=== PATIENT | female | born 1965 | race Caucasian/White ===

== ENCOUNTER → 2017-12-18 | Outpatient (CLI) | payer MEDICARE, OTHER ==
--- NOTE | 2017-12-24 07:28 | MM ---
Reason for exam: clinical finding. Last mammogram was performed 13 years and 7 months ago. History: Family history of breast cancer in sister at age 40. Indicated problem(s): lump or thickening in the right breast. Physical Findings: Nurse did not find any significant physical abnormalities on exam. MG 3D Diag Mammo W/Cad SAJAN Bilateral CC, MLO, spot compression MLO, spot compression CC, and ML view(s) were taken. Prior study comparison: May 03, 2004, left breast special view mammogram. April 05, 2004, bilateral screening mammogram. The breast tissue is heterogeneously dense. This may lower the sensitivity of mammography. There is new nodularity bilaterally. These results were verbally communicated with the patient on 12/23/14 ASSESSMENT: Incomplete: need additional imaging evaluation, BI-RAD 0 RECOMMENDATION: Ultrasound of both breasts.
--- NOTE | 2017-12-24 07:31 | USB ---
Reason for exam: additional evaluation requested from abnormal screening. History: Family history of breast cancer in sister at age 40. US Breast Limited BILAT Right breast ultrasound includes all four quadrants, the retroareolar region and axilla. Finding demonstrates a 0.5 x 0.3 x 0.6cm oval lesion too small to characterize at 8 o'clock and a 0.9 x 0.3 x 0.8cm oval, cystic lesion at 11 o'clock. Left breast ultrasound demonstrates a 0.4 x 0.3 x 0.4cm round lesion too small to characterize within debris at the nipple and a 0.2 x 0.3 x 0.3cm lesion too small to characterize at 6 o'clock. These results were verbally communicated with the patient on 12/23/17. ASSESSMENT: Probably benign, BI-RAD 3 RECOMMENDATION: Follow-up diagnostic mammogram and ultrasound of both breasts in 6 months.
== END ==
LOC: RADMAMWWP 13:35
PROVIDERS: ATTEND Family Medicine
DX: N63.10 Unspecified lump in the right breast, unspecified quadrant (principal); R92.8 Other abnormal and inconclusive findings on diagnostic imaging of breast
CPT/HCPCS: 77066; 76642; G0279

== ENCOUNTER 2017-12-30 09:11 | Day surgery (SDC) | payer MEDICARE, OTHER ==
[2017-12-27 13:09] VITALS: BMI 33.7
[~2017-12-30 09:11] MED LIST: HEPARIN SODIUM,PORCINE 5,000 UNIT/ML 1 ML VIAL SQ ONE; HYDROmorphone 0.5 MG/0.5 ML SYRINGE IVP PRN; LACTATED RINGERS 1,000 ML IV SCH; LIDOCAINE 1% 20 ML VIAL (10MG/ML) FOR IV START INTRADERMA PRN; ONDANSETRON 4 MG/2 ML VIAL IVP ONE; Pre Op ABX Message 1 EACH MISC MISCELLANE ONE
[2017-12-30 09:31] VITALS: TEMP 97
[2017-12-30] MEDS ORDERED: SCOPOLAMINE 1.5MG/72HR PATCH TRANSDERM ONE (09:44)
[2017-12-30] MEDS ORDERED: DEXAMETHASONE SOD PHOS (MDV) 100 MG/10 ML VIAL IVP ONE (09:44)
[2017-12-30 09:54] LABS: Glucose,Whole Blood 125 mg/dL (75-99)
--- NOTE | 2017-12-30 09:54 | P.GSHP ---
History of Present Illness H&P Date: 12/30/17 Chief Complaint: Epigastric abdominal wall cyst This a 52-year-old female who presents today for excision of a epigastric abdominal wall cyst. Past Medical History Past Medical History: Asthma, Diabetes Mellitus, GERD/Reflux, Hyperlipidemia, Hypertension, Musculoskeletal Disorder, Osteoarthritis (OA), Pneumonia Additional Past Medical History / Comment(s): DDD; History of Any Multi-Drug Resistant Organisms: None Reported Past Surgical History: Cholecystectomy, Orthopedic Surgery, Tubal Ligation, Uterine Ablation Additional Past Surgical History / Comment(s): COLONOSCOPY, EGD, REMOVAL LLE LIGAMENT, Paolo fundoplication Past Anesthesia/Blood Transfusion Reactions: Motion Sickness, Postoperative Nausea & Vomiting (PONV) Smoking Status: Never smoker - Past Family History Sister(s) Family Medical History: Cancer, Deep Vein Thrombosis (DVT) Additional Family Medical History / Comment(s): SISTER W/ BLOOD CLOTS, SISTERS WITH BREAST CANCER, sister with stomach cancer, sister with lupus. Patient has a total of 11 siblings. She has 3 daughters and 1 son that are healthy. Medications and Allergies Home Medications Medication Instructions Recorded Confirmed Type Albuterol Nebulized [Ventolin 2.5 mg INHALATION RT-Q4H PRN 01/18/15 12/27/17 History Nebulized] Simvastatin [Zocor] 40 mg PO HS 01/18/15 12/27/17 History glyBURIDE [Diabeta] 5 mg PO AC-BID 01/18/15 12/27/17 History metFORMIN HCL [Glucophage] 1,000 mg PO QAM 01/18/15 12/30/17 History HYDROcodone/APAP 10-325MG [Spelter 1 each PO Q4HR PRN 02/03/15 12/27/17 History 10] Lisinopril [Prinivil] 20 mg PO DAILY 02/03/15 12/30/17 History Furosemide [Lasix] 20 mg PO DAILY 07/06/15 12/27/17 History Meclizine [Antivert] 25 mg PO TID PRN #20 tab 07/06/15 12/27/17 Rx Ranitidine HCl [Zantac] 150 mg PO DAILY 06/04/16 12/30/17 History metFORMIN HCL [Glucophage] 1,500 mg PO HS 06/04/16 12/27/17 History Liraglutide [Victoza 2-Shad] 0.6 mg SQ BID 12/27/17 12/27/17 History Allergies Allergy/AdvReac Type Severity Reaction Status Date / Time shellfish derived [Shrimp] Allergy Rash/Hives Verified 12/30/17 09:19 sulfamethoxazole Allergy Rash/Hives Verified 12/30/17 09:19 [From Bactrim] trimethoprim [From Bactrim] Allergy Rash/Hives Verified 12/30/17 09:19 Surgical - Exam Vital Signs Temp Pulse Resp BP Pulse Ox 97.0 F L 77 18 132/80 99 12/30/17 09:29 12/30/17 09:29 12/30/17 09:29 12/30/17 09:29 12/30/17 09:29 - General well developed, no distress - Eyes PERRL - ENT normal pinna - Neck no masses - Respiratory normal expansion - Cardiovascular Rhythm: regular - Abdomen Abdomen: soft, non tender - Integumentary 3 cm epigastric abdominal wall cyst. There is no sign of infection. Assessment and Plan Assessment: Epigastric abdominal wall cyst. We'll perform excision.
[2017-12-30] MEDS ORDERED: PROPOFOL 10 MG/ML 20 ML VIAL IV ONE (10:07)
[2017-12-30] MEDS ORDERED: MIDAZOLAM 2 MG/2 ML VIAL ONE (10:07)
[2017-12-30] MEDS ORDERED: fentaNYL (PF) 50 MCG/ML 2 ML AMP ONE (10:07)
[2017-12-30] MEDS ORDERED: SODIUM CHLORIDE 0.9% 50 ML with ceFAZolin 2,000 MG IV ONE ×2 (10:18)
[2017-12-30] MEDS ORDERED: BUPIVACAINE (PF) 0.25% 30 ML VIAL SQ ONE (10:21)
--- NOTE | 2017-12-30 10:41 | P.OP ---
Date of Procedure: 12/30/17 Preoperative Diagnosis: Epigastric skin cyst Postoperative Diagnosis: Epigastric skin cyst Procedure(s) Performed: Excision of epigastric skin cyst Anesthesia: MAC Surgeon: Gera Araujo Pathology: other (Skin cyst) Condition: stable Disposition: PACU Description of Procedure: The patient's placed on the on the operating table in the supine position. She received IV sedation. The patient had a epigastric skin cyst. The area have a marked in the preoperative hold area elliptical skin incision was made around the skin cyst. The cyst measured approximately 3 x 2 cm. Using left cautery the subcutaneous tissue divided. The specimens of pathology. The wound was inspected for hemostasis. The skin was then closed interrupted 3-0 Monocryl suture. Dermabond was applied. Patient top she will was sent to recovery room stable condition.
[2017-12-30 10:47] LABS: Glucose,Whole Blood 124 mg/dL (75-99)
[2017-12-30 11:06] VITALS: RESP 18
[2017-12-30 11:24] VITALS: BP 116/55; PULSE 69
== END 2017-12-30 11:33 | disposition home or self-care (01) ==
LOC: OR 09:11
PROVIDERS: ATTEND Surgery
DX: L72.0 Epidermal cyst (principal); J45.909 Unspecified asthma, uncomplicated; E11.9 Type 2 diabetes mellitus without complications; K21.9 Gastro-esophageal reflux disease without esophagitis; E78.5 Hyperlipidemia, unspecified; I10 Essential (primary) hypertension; M19.90 Unspecified osteoarthritis, unspecified site; Z98.51 Tubal ligation status; Z79.84 Long term (current) use of oral hypoglycemic drugs; Z79.899 Other long term (current) drug therapy; Z88.2 Allergy status to sulfonamides; Z88.1 Allergy status to other antibiotic agents; Z91.013 Allergy to seafood
CPT/HCPCS: 88304; 11403; J2250; J1644; J2405; J3010; J0690; J1100; J2704

== ENCOUNTER → 2018-09-04 | Outpatient (CLI) | payer MEDICARE, OTHER ==
--- NOTE | 2018-09-04 10:16 | MM ---
Reason for exam: follow-up at short interval from prior study. Last mammogram was performed 9 months ago. History: Family history of breast cancer in sister at age 40. Physical Findings: Nurse did not find any significant physical abnormalities on exam. MG 3D Diag Mammo W/Cad SAJAN Bilateral CC and MLO view(s) were taken. Prior study comparison: December 18, 2017, bilateral MG 3d diag mammo w/cad SAJAN. July 29, 2015, mammogram, performed at [facility]. There are scattered fibroglandular densities. Patient is 3 months late for her diagnostic follow up. Superior asymmetric density right MLO stable for 9 months. 1.2cm nodular asymmetry central left CC view stable for 9 months. These results were verbally communicated with the patient and result sheet given to the patient on 09/04/18. ASSESSMENT: Probably benign, BI-RAD 3 RECOMMENDATION: Follow-up diagnostic mammogram of both breasts in 1 year.
--- NOTE | 2018-09-04 10:21 | USB ---
Reason for exam: follow-up at short interval from prior study. History: Family history of breast cancer in sister at age 40. US Breast BILAT Right complete breast ultrasound includes all four quadrants, the retroareolar region and axilla. Finding demonstrates a 9 x 2 x 8mm oval, cystic, benign, stable lesion at 11 o'clock and a 1.9cm oval, lymph node at the axilla tail, stable, mildly enlarged probably chronic reactive, there is a large fatty hilum. Left complete breast ultrasound includes all four quadrants, the retroareolar region and axilla. Finding demonstrates a 4 x 2 x 4mm oval, hypoechoic lesion at 1 o'clock, likely a complicated cyst, a 7 x 3 x 7mm oval, cystic, benign lesion at 3 o'clock and a 9 x 3 x 8mm oval, hypoechoic lesion at 4 o'clock, likely a prominent lobe. Patient is 3 months late for diagnostic follow up. These results were verbally communicated with the patient and result sheet given to the patient on 09/04/18. ASSESSMENT: Probably benign, BI-RAD 3 RECOMMENDATION: Follow-up diagnostic mammogram of both breasts in 1 year.
== END ==
LOC: RADMAMWWP 08:50
PROVIDERS: ATTEND Family Medicine
DX: R92.8 Other abnormal and inconclusive findings on diagnostic imaging of breast (principal)
CPT/HCPCS: 77066; 76641; G0279; 77062

== ENCOUNTER → 2018-12-04 | Outpatient (CLI) | payer MEDICARE, OTHER ==
[2018-12-04 14:53] LABS: Blood Urea Nitrogen 23 mg/dL (7-17)
--- NOTE | 2018-12-04 16:36 | CT ---
EXAMINATION TYPE: CT abdomen pelvis w con DATE OF EXAM: 12/04/2018 COMPARISON: NONE HISTORY: 53-year-old female abdominal and Pelvic pain. Hematuria TECHNIQUE: Contiguous axial scanning of the abdomen and pelvis following administration of 100 ml Iso jaguar 300 IV contrast. Delayed images through the kidneys and coronal/sagittal reconstructions perform ed. CT DLP: 1700.3 mGycm Automated exposure control for dose reduction was used. FINDINGS: Heart normal size without pericardial effusion. Postsurgical changes at the GE junction of Jackson fundoplication. Left basilar atelectasis. 5 mm anterior right basilar pulmonary nodule is nonspecific. Three-month fo llow-up chest recommended to reassess. Liver upper limits of normal in size at 17.3 cm. Slight diffuse low attenuation may reflect mild fatt y infiltration. Portal venous system is patent. No biliary ductal dilatation. Cholecystectomy clips. Adrenal glands, kidneys, and pancreas appear within normal limits. Small 1.1 cm exophytic hypodense l esion from the lower pole of the spleen likely a small cyst. No nephrolithiasis or hydronephrosis seen. Symmetric uptake and excretion of contrast from both kidne ys No dilated small bowel, free fluid, or free air. No mesenteric or retroperitoneal lymphadenopathy. Normal appendix. Somewhat tortuous cecum. Moderate stool burden. Sigmoid diverticulosis. No pericolon ic inflammatory change. Oral contrast progressed to the hepatic flexure. Some nonspecific fat stranding in the left mid abdominal anterior subcutaneous adipose tissues. Bladder nondistended. Uterus and small ovaries are visualized. No abnormal fluid collection in the pe lvis or pelvic lymphadenopathy. Bones: Degenerative changes of the hips and SI joints and facet arthropathy lower lumbar spine with b ulging disc at L4-L5. No osseous destructive process. Endplate spondylosis lower thoracic spine. IMPRESSION: 1. A 5 MM RIGHT BASILAR PULMONARY NODULE. THREE-MONTH FOLLOW-UP CT CHEST RECOMMENDED TO REASSESS. 2. STATUS POST CHOLECYSTECTOMY AND PRIOR JACKSON FUNDOPLICATION. 3. BORDERLINE SIZE LIVER (17.3 CM). THERE MAY BE MILD FATTY INFILTRATION. 4. NO NEPHROLITHIASIS OR HYDRONEPHROSIS. 5. SIGMOID DIVERTICULOSIS WITHOUT EVIDENCE FOR ACUTE DIVERTICULITIS. MODERATE STOOL BURDEN. 6. SOME NONSPECIFIC MILD FAT STRANDING ANTERIOR LEFT MID ABDOMINAL SUBCUTANEOUS TISSUES. CORRELATE FO R ANY LOCALIZING SYMPTOMS HERE. FINDINGS COULD REPRESENT SUBCUTANEOUS INJECTIONS, CELLULITIS, SCARRIN G, OR BRUISING.
== END | disposition home or self-care (01) ==
LOC: RADCTMAIN 14:11
PROVIDERS: ATTEND Family Medicine
DX: K57.30 Diverticulosis of large intestine without perforation or abscess without bleeding (principal); Z90.49 Acquired absence of other specified parts of digestive tract; Z98.890 Other specified postprocedural states
CPT/HCPCS: 82565; 84520; 74177; 36415; Q9967

== ENCOUNTER → 2019-01-14 | Outpatient (CLI) | payer MEDICARE, OTHER ==
[2019-01-14 15:48] LABS: Blood Urea Nitrogen 19 mg/dL (7-17)
--- NOTE | 2019-01-15 07:06 | CT ---
EXAMINATION TYPE: CT chest w con DATE OF EXAM: 01/14/2019 COMPARISON: CT abdomen and pelvis December 04, 2018 HISTORY: pulmonary nodule, recent abnormal CT. CT DLP: 709 mGycm. Automated Exposure Control for Dose Reduction was Utilized. TECHNIQUE: CT scan of the thorax is performed following with IV Contrast, patient injected with 100 mL of Isovue 300. FINDINGS: LUNGS: There is redemonstration of 5 x 3 mm nodule anterior right lower lobe axial image 37. No addit ional greater than 4 mm parenchymal nodules or masses are identified bilaterally. There is patchy bib asilar linear scarring and/or atelectasis near both diaphragms posteriorly. No pleural effusion or pn eumothorax is seen. Tracheobronchial tree is patent. MEDIASTINUM: There are no greater than 1 cm hilar or mediastinal lymph nodes. No cardiomegaly or p ericardial effusion is seen. Thyroid gland is somewhat small in size. OTHER: Surgical changes just below diaphragm gastroesophageal junction likely from Paolo fundoplicat ion surgery are redemonstrated. There is moderate multilevel spurring in the mid to lower thoracic sp ine. IMPRESSION: 1. Redemonstration of 5 x 3 mm right basilar nodule. No additional nodules or suspicious adenopathy i dentified. Consider follow-up CT in one year time to document stability.
== END | disposition home or self-care (01) ==
LOC: RADCTMAIN 15:04
PROVIDERS: ATTEND Family Medicine
DX: R91.1 Solitary pulmonary nodule (principal); Z88.2 Allergy status to sulfonamides; Z91.041 Radiographic dye allergy status
CPT/HCPCS: 82565; 84520; 71260; Q9967

== ENCOUNTER → 2019-08-25 | Outpatient (CLI) | payer MEDICARE, OTHER ==
--- NOTE | 2019-08-25 15:08 | US ---
EXAMINATION TYPE: US venous doppler duplex [facility] DATE OF EXAM: 08/25/2019 2:33 PM COMPARISON: US 2014 CLINICAL HISTORY: R60.0 Edema. Intermittent left leg swelling during activity x 1 year SIDE PERFORMED: Bilateral TECHNIQUE: The lower extremity deep venous system is examined utilizing real time linear array sonog norma with graded compression, doppler sonography and color-flow sonography. VESSELS IMAGED: External Iliac Vein (EIV) Common Femoral Vein Deep Femoral Vein Greater Saphenous Vein * Femoral Vein Popliteal Vein Small Saphenous Vein * Proximal Calf Veins (* superficial vessels) Grayscale, color doppler, spectral doppler imaging performed of the deep veins of the lower extremiti es. There is normal flow, compressibility, vascular waveforms. Right Leg: Appears negative for DVT Left Leg: Appears negative for DVT IMPRESSION: No sonographic evidence of deep venous thrombosis within the bilateral lower extremities .
== END | disposition home or self-care (01) ==
LOC: RADUSWWP 13:58
PROVIDERS: ATTEND Family Medicine
DX: R22.43 Localized swelling, mass and lump, lower limb, bilateral (principal)
CPT/HCPCS: 93970

== ENCOUNTER → 2019-09-23 | Outpatient (CLI) | payer MEDICARE, OTHER ==
--- NOTE | 2019-09-23 09:12 | US ---
EXAMINATION TYPE: US abdomen complete DATE OF EXAM: 09/23/2019 COMPARISON: NONE CLINICAL HISTORY: K27.9 PUD,I71.9 AAA. NPO, GB removed, generalized pain EXAM MEASUREMENTS: Liver Length: 16.5 cm CBD: 0.5 cm Spleen: 9.8 cm Right Kidney: 9.7 x 4.8 x 4.4 cm Left Kidney: 9.8 x 4.6 x 4.3 cm Limited due to patient body habitus and bowel gas Pancreas: Appears echogenic in appearance Liver: Appears coarse Gallbladder: Surgically absent Evidence for sonographic Marie's sign: neg CBD: wnl Spleen: wnl Right Kidney: Superior pole obscured by bowel gas Left Kidney: No hydronephrosis or masses seen Upper IVC: wnl Abd Aorta: No AAA visualized The liver is coarse in its overall appearance. The intrahepatic portion of the IVC and proximal abdom inal aorta are within normal limits. There is no evidence of cholelithiasis. Common bile duct is un remarkable. The visualized portions of the pancreas are homogenous. The spleen is unremarkable. Ki dneys are symmetric and free of hydronephrosis. No renal lesions are seen. IMPRESSION: 1. Findings felt to reflect hepatic steatosis. Correlate clinically.
--- NOTE | 2019-09-23 09:53 | MM ---
Reason for exam: additional evaluation requested from prior study. Last mammogram was performed 1 year and 1 month ago. History: Family history of breast cancer in sister at age 40. Physical Findings: Nurse did not find any significant physical abnormalities on exam. MG 3D Diag Mammo W/Cad SAJAN Bilateral CC and MLO view(s) were taken. Prior study comparison: September 04, 2018, bilateral MG 3d diag mammo w/cad SAJAN. December 18, 2017, bilateral MG 3d diag mammo w/cad SAJAN. The breast tissue is heterogeneously dense. This may lower the sensitivity of mammography. No suspicious abnormality. Central upper middle depth left focal asymmetry is stable back to 2014. These results were verbally communicated with the patient and result sheet given to the patient on 09/23/19. ASSESSMENT: Benign, BI-RAD 2 RECOMMENDATION: Routine screening mammogram of both breasts in 1 year.
--- NOTE | 2019-09-23 11:04 | BD ---
EXAMINATION TYPE: Axial Bone Density DATE OF EXAM: 09/23/2019 COMPARISON: NONE CLINICAL HISTORY: N 95.1 Height: 64.5 Weight: 221.0 FRAX RISK QUESTIONS: Alcohol (3 or more units per day): no Family History (Parent hip fracture): no Glucocorticoids (More than 3mos): no (Ex: prednisone, prednisolone, methylprednisolone, dexamethasone, and hydrocortisone). History of Fracture in Adulthood: no Secondary Osteoporosis: 1. Type 1 Diabetes: no 2. Hyperthyroidism: no 3. Menopause before 45: no 4. Malnutrition: no 5. Chronic liver disease: no Rheumatoid Arthritis: no Current Tobacco Use: no RISK FACTORS HISTORY OF: Family History of Osteoporosis: no Active: yes Diet low in dairy products/other sources of calcium: yes Postmenopausal woman: ablation in 2004 MEDICATIONS: diabetic meds, Zocor, lisinopril, zantac, water pill Additional History: EXAM MEASUREMENTS: Bone mineral densitometry was performed using the [employer] System. Bone mineral density as measured about the Lumbar spine is: ----- L1-L4(G/cm2): 1.263 T Score Values are as follows: ----- L2: 0.8 ----- L3: 0.6 ----- L4: 1.1 ----- L1-L4: 0.7 Bone mineral density : baseline Bone mineral density about the R hip (g/cm2): 0.834 Bone mineral density about the L hip (g/cm2): 0.825 T Score values are as follows: -----R Neck: -1.5 -----L Neck: -1.5 -----R Total: -0.7 -----L Total: -0.5 Bone mineral density : baseline IMPRESSION: Osteopenia (T Score between -2.5 and -1). There is slightly increased risk of fracture and the patient may be considered for treatment. Re-Screen 2-5 years. NOTE: T-SCORE=SD OF THE YOUNG ADULT MEAN.
== END | disposition home or self-care (01) ==
LOC: RADMAMWWP 08:09
PROVIDERS: ATTEND Family Medicine
DX: R92.8 Other abnormal and inconclusive findings on diagnostic imaging of breast (principal); M85.80 Other specified disorders of bone density and structure, unspecified site; K27.9 Peptic ulcer, site unspecified, unspecified as acute or chronic, without hemorrhage or perforation; I71.4 Abdominal aortic aneurysm, without rupture; Z79.52 Long term (current) use of systemic steroids; Z91.041 Radiographic dye allergy status; Z91.013 Allergy to seafood
CPT/HCPCS: 77080; 77066; 76700; G0279; 77062

== ENCOUNTER 2020-09-14 11:38 | Emergency (ER) | payer MEDICARE, OTHER ==
[2020-09-14] MEDS ORDERED: SODIUM CHLORIDE 0.9% 1,000 ML IV STA (12:08)
[2020-09-14] MEDS ORDERED: KETOROLAC 15 MG/ML 1 ML VIAL IVP STA (12:08)
[2020-09-14] MEDS ORDERED: ONDANSETRON 4 MG/2 ML VIAL IVP STA (12:08)
[2020-09-14] MEDS ORDERED: PANTOPRAZOLE 40 MG/10 ML VIAL IVP STA (12:08)
[2020-09-14] MEDS ORDERED: MORPHINE SULFATE 4 MG/ML SYRINGE IV STA (12:08)
--- NOTE | 2020-09-14 12:12 | ED ---
Abdominal Pain HPI - General Chief Complaint: Abdominal Pain Stated Complaint: abd pain Time Seen by Provider: 09/14/20 11:53 Source: patient, RN notes reviewed, old records reviewed Mode of arrival: ambulatory Limitations: no limitations - History of Present Illness Initial Comments: 55-year-old female presents emergency department today for evaluation for 3 weeks of right-sided upper abdominal and back flank pain. Patient reports that she seems to think it's worse with certain movements. She was seen by her PCP was initially started and was prescribed baclofen. She reports no improvement with her symptoms at this time. She reports that she also has some tingling into her kidney and towards the right lower quadrant. Patient denies any fevers or chills. She reports that she's had no changes in stools or urination. - Related Data Home Medications Medication Instructions Recorded Confirmed Albuterol Nebulized [Ventolin 2.5 mg INHALATION RT-Q4H PRN 01/18/15 12/30/17 Nebulized] Simvastatin [Zocor] 40 mg PO HS 01/18/15 12/30/17 metFORMIN HCL [Glucophage] 1,000 mg PO QAM 01/18/15 12/30/17 HYDROcodone/APAP 10-325MG [[place] 1 each PO Q4HR PRN 02/03/15 12/30/17 10] lisinopriL [Prinivil] 20 mg PO DAILY 02/03/15 12/30/17 Furosemide [Lasix] 20 mg PO DAILY 07/06/15 12/30/17 Ranitidine HCl [Zantac] 150 mg PO DAILY 06/04/16 12/30/17 metFORMIN HCL [Glucophage] 1,500 mg PO HS 06/04/16 12/30/17 Liraglutide [Victoza 2-Shad] 0.6 mg SQ BID 12/27/17 12/30/17 Previous Rx's Medication Instructions Recorded Meclizine [Antivert] 25 mg PO TID PRN #20 tab 07/06/15 Ibuprofen [Motrin] 600 mg PO Q8HR PRN #20 tab 09/14/20 Allergies Allergy/AdvReac Type Severity Reaction Status Date / Time shellfish derived [Shrimp] Allergy Rash/Hives Verified 09/14/20 11:44 sulfamethoxazole Allergy Rash/Hives Verified 09/14/20 11:44 [From Bactrim] trimethoprim [From Bactrim] Allergy Rash/Hives Verified 09/14/20 11:44 Review of Systems ROS Statement: Those systems with pertinent positive or pertinent negative responses have been documented in the HPI. ROS Other: All systems not noted in ROS Statement are negative. Past Medical History Past Medical History: Asthma, Diabetes Mellitus, GERD/Reflux, Hyperlipidemia, Hypertension, Musculoskeletal Disorder, Osteoarthritis (OA), Pneumonia Additional Past Medical History / Comment(s): DDD; History of Any Multi-Drug Resistant Organisms: None Reported Past Surgical History: Cholecystectomy, Orthopedic Surgery, Tubal Ligation, Uterine Ablation Additional Past Surgical History / Comment(s): COLONOSCOPY, EGD, REMOVAL LLE LIGAMENT, Paolo fundoplication Past Anesthesia/Blood Transfusion Reactions: Motion Sickness, Postoperative Nausea & Vomiting (PONV) Past Psychological History: Anxiety, Depression Smoking Status: Never smoker Past Alcohol Use History: None Reported Past Drug Use History: None Reported - Past Family History Sister(s) Family Medical History: Cancer, Deep Vein Thrombosis (DVT) Additional Family Medical History / Comment(s): SISTER W/ BLOOD CLOTS, SISTERS WITH BREAST CANCER, sister with stomach cancer, sister with lupus. Patient has a total of 11 siblings. She has 3 daughters and 1 son that are healthy. General Exam - General Exam Comments Initial Comments: This is a 55-year-old male. Alert and oriented 3. No distress. Limitations: no limitations General appearance: alert, in no apparent distress Head exam: Present: atraumatic, normocephalic, normal inspection Eye exam: Present: normal appearance, PERRL, EOMI. Absent: scleral icterus, conjunctival injection, periorbital swelling ENT exam: Present: normal exam, mucous membranes moist Neck exam: Present: normal inspection. Absent: tenderness, meningismus, lymphadenopathy Respiratory exam: Present: normal lung sounds bilaterally. Absent: respiratory distress, wheezes, rales, rhonchi, stridor Cardiovascular Exam: Present: regular rate, normal rhythm, normal heart sounds. Absent: systolic murmur, diastolic murmur, rubs, gallop, clicks GI/Abdominal exam: Present: soft, normal bowel sounds. Absent: distended, tenderness, guarding, rebound, rigid Extremities exam: Present: normal inspection, full ROM, normal capillary refill. Absent: tenderness, pedal edema, joint swelling, calf tenderness Back exam: Present: normal inspection Neurological exam: Present: alert, oriented X3, CN II-XII intact Psychiatric exam: Present: normal affect, normal mood Skin exam: Present: warm, dry, intact, normal color. Absent: rash Course Vital Signs 09/14/20 09/14/20 09/14/20 11:42 12:25 14:15 Temperature 97.6 F Pulse Rate 82 78 75 Respiratory 18 16 18 Rate Blood Pressure 162/82 145/62 155/64 O2 Sat by Pulse 100 99 98 Oximetry Medical Decision Making - Medical Decision Making This patient's 55-year-old female presents emergency room today with 3 weeks of right-sided flank pain. Patient reports that she's had no fevers or chills. She denies any other acute symptoms related to the pain. Persistent sometimes is worse with movement. She has extensive evaluation. Lab was reviewed. She did have a mildly elevated d-dimer. Discussed imaging for possible PE with a computed tomography scan. Patient's CT was completed also any but no acute evidence of PE. Wrist has normal clinical suspicion for this. Patient at this time UA and CT on pelvis reviewed and negative for acute process. Discussed pain seems to most likely musculoskeletal and we'll discharge the Patient with anti-inflammatory medication. Discussed return - Lab Data Result diagrams: 09/14/20 12:13 09/14/20 12:13 Lab Results 09/14/20 09/14/20 09/14/20 Range/Units 12:13 12:13 12:13 WBC 9.1 (3.8-10.6) k/uL RBC 4.71 (3.80-5.40) m/uL Hgb 11.6 (11.4-16.0) gm/dL Hct 38.0 (34.0-46.0) % MCV 80.6 (80.0-100.0) fL MCH 24.5 L (25.0-35.0) pg MCHC 30.5 L (31.0-37.0) g/dL RDW 14.6 (11.5-15.5) % Plt Count 279 (150-450) k/uL Neutrophils % 70 % Lymphocytes % 20 % Monocytes % 6 % Eosinophils % 2 % Basophils % 0 % Neutrophils # 6.4 (1.3-7.7) k/uL Lymphocytes # 1.8 (1.0-4.8) k/uL Monocytes # 0.6 (0-1.0) k/uL Eosinophils # 0.2 (0-0.7) k/uL Basophils # 0.0 (0-0.2) k/uL Hypochromasia Marked PT 9.5 (9.0-12.0) sec INR 0.9 (<1.2) APTT 22.9 (22.0-30.0) sec D-Dimer 0.88 H (<0.60) mg/L FEU Sodium (137-145) mmol/L Potassium (3.5-5.1) mmol/L Chloride (98-107) mmol/L Carbon Dioxide (22-30) mmol/L Anion Gap mmol/L BUN (7-17) mg/dL Creatinine (0.52-1.04) mg/dL Est GFR (CKD-EPI)AfAm (>60 ml/min/1.73 sqM) Est GFR (CKD-EPI)NonAf (>60 ml/min/1.73 sqM) Glucose (74-99) mg/dL Calcium (8.4-10.2) mg/dL Total Bilirubin (0.2-1.3) mg/dL AST (14-36) U/L ALT (4-34) U/L Alkaline Phosphatase (38-126) U/L Total Protein (6.3-8.2) g/dL Albumin (3.5-5.0) g/dL Amylase (30-110) U/L Lipase (23-300) U/L Urine Color Light Yellow Urine Appearance Clear (Clear) Urine pH 8.0 (5.0-8.0) Ur Specific Pender 1.007 (1.001-1.035) Urine Protein Negative (Negative) Urine Glucose (UA) Negative (Negative) Urine Ketones Negative (Negative) Urine Blood Negative (Negative) Urine Nitrite Negative (Negative) Urine Bilirubin Negative (Negative) Urine Urobilinogen <2.0 (<2.0) mg/dL Ur Leukocyte Esterase Trace H (Negative) Urine WBC 2 (0-5) /hpf Ur Squamous Epith Cells <1 (0-4) /hpf Urine Bacteria Rare H (None) /hpf Hyaline Casts 1 (0-2) /lpf 09/14/20 Range/Units 12:13 WBC (3.8-10.6) k/uL RBC (3.80-5.40) m/uL Hgb (11.4-16.0) gm/dL Hct (34.0-46.0) % MCV (80.0-100.0) fL MCH (25.0-35.0) pg MCHC (31.0-37.0) g/dL RDW (11.5-15.5) % Plt Count (150-450) k/uL Neutrophils % % Lymphocytes % % Monocytes % % Eosinophils % % Basophils % % Neutrophils # (1.3-7.7) k/uL Lymphocytes # (1.0-4.8) k/uL Monocytes # (0-1.0) k/uL Eosinophils # (0-0.7) k/uL Basophils # (0-0.2) k/uL Hypochromasia PT (9.0-12.0) sec INR (<1.2) APTT (22.0-30.0) sec D-Dimer (<0.60) mg/L FEU Sodium 138 (137-145) mmol/L Potassium 4.5 (3.5-5.1) mmol/L Chloride 101 (98-107) mmol/L Carbon Dioxide 32 H (22-30) mmol/L Anion Gap 5 mmol/L BUN 19 H (7-17) mg/dL Creatinine 0.87 (0.52-1.04) mg/dL Est GFR (CKD-EPI)AfAm 86 (>60 ml/min/1.73 sqM) Est GFR (CKD-EPI)NonAf 74 (>60 ml/min/1.73 sqM) Glucose 128 H (74-99) mg/dL Calcium 9.7 (8.4-10.2) mg/dL Total Bilirubin 0.4 (0.2-1.3) mg/dL AST 24 (14-36) U/L ALT 17 (4-34) U/L Alkaline Phosphatase 75 (38-126) U/L Total Protein 7.3 (6.3-8.2) g/dL Albumin 4.3 (3.5-5.0) g/dL Amylase 44 (30-110) U/L Lipase 84 (23-300) U/L Urine Color Urine Appearance (Clear) Urine pH (5.0-8.0) Ur Specific [place]ender (1.001-1.035) Urine Protein (Negative) Urine Glucose (UA) (Negative) Urine Ketones (Negative) Urine Blood (Negative) Urine Nitrite (Negative) Urine Bilirubin (Negative) Urine Urobilinogen (<2.0) mg/dL Ur Leukocyte Esterase (Negative) Urine WBC (0-5) /hpf Ur Squamous Epith Cells (0-4) /hpf Urine Bacteria (None) /hpf Hyaline Casts (0-2) /lpf - Radiology Data Radiology results: report reviewed Overall nonobstructive bowel gas pattern. Chest x-ray shows chronic changes without acute pulmonary process. CT shows no acute abdominal pelvic findings. CT shows suboptimal study without CT evidence for acute pulmonary animals in. No suspicious acute bony process. Disposition Clinical Impression: Right flank pain Disposition: HOME SELF-CARE Condition: Good Instructions (If sedation given, give patient instructions): Flank Pain (ED), Chronic Back Pain (DC) Additional Instructions: Patient has a take medications as prescribed. Following up with primary care physician. Return to the ED if any alarming signs or symptoms occur. Prescriptions: Ibuprofen [Motrin] 600 mg PO Q8HR PRN #20 tab PRN Reason: Pain Is patient prescribed a controlled substance at d/c from ED?: No Referrals: Escobar Mcdonald DO [Primary Care Provider] - 1-2 days Time of Disposition: 15:05
[2020-09-14 12:27] LABS: Basophils % (A) 0 %; Eosinophils # (A) 0.2 k/uL (0-0.7); Eosinophils % (A) 2 %; HGB 11.6 gm/dL (11.4-16.0); Hypochromasia Marked; Lymphocytes # (A) 1.8 k/uL (1.0-4.8); Lymphocytes % (A) 20 %; MCH 24.5 pg (25.0-35.0); MCHC 30.5 g/dL (31.0-37.0); MCV 80.6 fL (80.0-100.0); Mean Platelet Volume 7.9; Monocytes # (A) 0.6 k/uL (0-1.0); Monocytes % (A) 6 %; Neutrophils # (A) 6.4 k/uL (1.3-7.7); Neutrophils % (A) 70 %; Platelet Count 279 k/uL (150-450); RBC 4.71 m/uL (3.80-5.40); RDW 14.6 % (11.5-15.5); WBC 9.1 k/uL (3.8-10.6)
[2020-09-14 12:36] LABS: Appearance,Urine Clear (Clear); Bacteria,Urine Rare /hpf; Bilirubin,Urine Negative (Negative); Blood,Urine Negative (Negative); Color,Urine Light Yellow; Glucose,Urine (UA) Negative (Negative); Hyaline Casts,Urine 1 /lpf (0-2); Ketones,Urine Negative (Negative); Leukocyte Esterase,Urine Trace (Negative); Nitrite,Urine Negative (Negative); Protein,Urine Negative (Negative); Specific Gravity,Urine 1.007 (1.001-1.035); Squamous Epithelial Cell,Urine <1 /hpf (0-4); Urobilinogen,Urine <2.0 mg/dL (<2.0); WBC,Urine 2 /hpf (0-5)
[2020-09-14 12:37] LABS: Albumin 4.3 g/dL (3.5-5.0); Calcium 9.7 mg/dL (8.4-10.2); Potassium 4.5 mmol/L (3.5-5.1); Total Bilirubin 0.4 mg/dL (0.2-1.3); Total Protein 7.3 g/dL (6.3-8.2)
--- NOTE | 2020-09-14 12:37 | XR ---
EXAMINATION TYPE: XR chest 2V DATE OF EXAM: 09/14/2020 COMPARISON: CT chest January 14, 2019 HISTORY: Chest and right-sided abdominal pain. TECHNIQUE: Frontal and lateral views of the chest are obtained. FINDINGS: There is some chronic parenchymal change bilaterally without suspicious new focal air spac e opacity, pleural effusion, or pneumothorax seen. The cardiac silhouette size remains within normal limits. Multilevel spurring in the thoracic spine is present. IMPRESSION: Chronic changes without acute pulmonary process.
--- NOTE | 2020-09-14 12:38 | XR ---
EXAMINATION TYPE: XR KUB DATE OF EXAM: 09/14/2020 12:32 PM CLINICAL HISTORY: Right-sided pain for 3 weeks. TECHNIQUE: Two Upright KUB images of the abdomen are obtained. COMPARISON: CT abdomen and pelvis December 04, 2018. FINDINGS: Scattered gas is seen in non-distended stomach and small bowel loops. Gas and fecal materia l is seen in non-distended colon. Cholecystectomy clips are redemonstrated. No pneumoperitoneum or knight spicious calcification. Lung bases remain clear. Osseous structures are intact. Surgical changes epig astric region from Paolo fundoplication surgery noted. IMPRESSION: Overall nonobstructive bowel gas pattern.
[2020-09-14 12:48] LABS: INR 0.9 (<1.2); Partial Thromboplastin Time 22.9 sec (22.0-30.0); Prothrombin Time 9.5 sec (9.0-12.0)
[2020-09-14 12:56] LABS: D-Dimer 0.88 mg/L FEU (<0.60)
[2020-09-14] MEDS ORDERED: methylPREDNISolone SOD SUCCI 125 MG/2 ML VIAL IV STA (13:10)
[2020-09-14] MEDS ORDERED: FAMOTIDINE 20 MG/2 ML VIAL IV STA (13:10)
[2020-09-14] MEDS ORDERED: diphenhydrAMINE 50 MG/ML 1 ML VIAL IVP STA (13:10)
[2020-09-14 14:21] VITALS: RESP 18
--- NOTE | 2020-09-14 14:26 | CT ---
EXAMINATION TYPE: CT chest angio for PE DATE OF EXAM: 09/14/2020 COMPARISON: Chest x-ray earlier today. CT chest the third 06/06/2019 HISTORY: Chest pain. Positive d-dimer. CT DLP: 3285.5 for Chest/abd/pelvis mGycm Automated exposure control for dose reduction was used. CONTRAST: CT Chest for pulmonary embolism performed with with IV Contrast, patient injected with 100 mL of Isov ue 300. FINDINGS: LUNGS: The lungs remain grossly clear, there is no concerning new parenchymal mass or nodule identifi ed. Stable 5 x 3 mm anterior right lower lung nodule axial image 89 along fissure presumed benign. T here is no pleural effusion or pneumothorax seen bilaterally. No suspicious new consolidation. The tr acheobronchial tree is patent. MEDIASTINUM: There is suboptimal study with near equal contrast in right metatarsal stumps but there is no CT evidence for pulmonary embolism. There are no greater than 1 cm hilar or mediastinal lymph nodes. No cardiomegaly or pericardial effusion is seen. OTHER: Mild to moderate multilevel spurring in the spine. Please refer to same day CT abdomen and pe lvis report for complete details of the upper abdomen. IMPRESSION: 1. Suboptimal study without CT evidence for acute pulmonary embolism. No new suspicious acute pulmona ry process.
--- NOTE | 2020-09-14 14:32 | CT ---
EXAMINATION TYPE: CT abdomen pelvis w con DATE OF EXAM: 09/14/2020 COMPARISON: CT abdomen pelvis 12/04/2018 HISTORY: Chest/Abd pain. Left flank pain. Surgical history of tubal ligation, cholecystectomy, hiatal hernia repair. CT DLP: 3285.5 for Chest/Abd/pelvis mGycm Automated exposure control for dose reduction was used. TECHNIQUE: Helical acquisition of images was performed from the lung bases through the pelvis. CONTRAST: Performed without Oral Contrast and with IV Contrast, patient injected with 100 mL of Isovue 370. FINDINGS: LUNG BASES: No pericardial or pleural effusion. LIVER: Normal. BILIARY SYSTEM: Status post cholecystectomy. No intrahepatic or extrahepatic biliary ductal dilatatio n. PANCREAS: Normal. SPLEEN: Normal. ADRENALS: Normal. KIDNEYS: Normal. BOWEL: Status post Fahad fundoplication. Colonic diverticulosis. No acute diverticulitis. No obstru ction or thickening. Normal appendix. PERITONEUM: No pneumoperitoneum. No free fluid. LYMPH NODES: No lymphadenopathy. PELVIS: Normal. VASCULATURE: No abdominal aortic aneurysm. MUSCULOSKELETAL: Degenerative changes of the spine. Stranding of the left anterolateral mid abdomina l subcutaneous tissue is redemonstrated from 12/04/2018, and may represent scarring. IMPRESSION: No acute abdominopelvic findings.
[2020-09-14 15:32] VITALS: BP 138/63; PULSE 72; TEMP 98.2
== END 2020-09-14 15:30 | disposition home or self-care (01) ==
LOC: EC 11:38
DX: R10.9 Unspecified abdominal pain (principal); R79.1 Abnormal coagulation profile; J45.909 Unspecified asthma, uncomplicated; E11.9 Type 2 diabetes mellitus without complications; K21.9 Gastro-esophageal reflux disease without esophagitis; E78.5 Hyperlipidemia, unspecified; I10 Essential (primary) hypertension; Z79.899 Other long term (current) drug therapy; Z88.1 Allergy status to other antibiotic agents; Z88.2 Allergy status to sulfonamides; Z91.013 Allergy to seafood; Z90.49 Acquired absence of other specified parts of digestive tract
CPT/HCPCS: 36415; 85379; 80053; 82150; 83690; 85025; 85610; 85730; 81001; 71046; 74018; 71275; 74177; 99285; 96374; 96375 ×6; 96361; J2270; J1200; J2930; J2405; J1885; C9113; Q9967

== ENCOUNTER → 2021-12-18 | Outpatient (CLI) | payer MEDICARE, OTHER ==
--- NOTE | 2021-12-18 12:07 | MM ---
Reason for exam: screening (asymptomatic). Last mammogram was performed 2 years and 3 months ago. History: Family history of breast cancer in sister at age 40. Physical Findings: A clinical breast exam by your physician is recommended on an annual basis and results should be correlated with mammographic findings. MG 3D Screening Mammo W/Cad Bilateral CC and MLO view(s) were taken. XCCL view(s) were taken of the right breast. Prior study comparison: September 23, 2019, bilateral MG 3d diag mammo w/cad SAJAN. September 04, 2018, bilateral MG 3d diag mammo w/cad SAJAN. The breast tissue is heterogeneously dense. This may lower the sensitivity of mammography. There is no discrete abnormality. ASSESSMENT: Negative, BI-RAD 1 RECOMMENDATION: Routine screening mammogram of both breasts in 1 year.
== END | disposition home or self-care (01) ==
LOC: RADMAMWWP 09:03
PROVIDERS: ATTEND Family Medicine
DX: Z12.31 Encounter for screening mammogram for malignant neoplasm of breast (principal); Z80.3 Family history of malignant neoplasm of breast
CPT/HCPCS: 77063; 77067

== ENCOUNTER → 2023-03-07 | Outpatient (CLI) | payer MEDICARE, OTHER ==
--- NOTE | 2023-03-08 16:12 | MM ---
Reason for Exam: Screening (asymptomatic). Last mammogram was performed 1 year(s) and 3 month(s) ago. Patient History: Menarche at age 10. First Full-Term at age 17. Sister had breast cancer, age 40. Risk Values: Maryam 5 year model risk: 2.6%. NCI Lifetime model risk: 13.5%. Prior Study Comparison: 09/04/2018 Bilateral Diagnostic Mammogram, [facility]. 09/23/2019 Bilateral Diagnostic Mammogram, [facility]. 12/18/2021 Bilateral Screening Mammogram, [facility]. Tissue Density: The breast tissue is heterogeneously dense. This may lower the sensitivity of mammography. Findings: Analyzed By CAD. Pattern appears symmetrical and stable. No significant interval change is evident. Benign vascular calcifications within the left breast. No suspicious groups of microcalcifications, spiculated or lobular masses, architectural distortion or other secondary signs of malignancy are mammographically apparent. Overall Assessment: Benign, BI-RAD 2 Management: Screening Mammogram of both breasts in 1 year. A negative mammogram report should not preclude additional follow up of suspicious palpable abnormalities. Patient should continue monthly self breast exam. A clinical breast exam by your physician is recommended on an annual basis and results should be correlated with mammographic findings. Electronically signed and approved by: Keven Raymundo D.O. Radiologis
== END | disposition home or self-care (01) ==
LOC: RADMAMWWP 09:59
PROVIDERS: ATTEND Family Medicine
DX: Z12.31 Encounter for screening mammogram for malignant neoplasm of breast (principal); Z80.3 Family history of malignant neoplasm of breast
CPT/HCPCS: 77063; 77067

== ENCOUNTER → 2023-09-09 | Outpatient (CLI) | payer MEDICARE, OTHER ==
--- NOTE | 2023-09-09 16:09 | BD ---
EXAMINATION TYPE: Axial Bone Density DATE OF EXAM: 09/09/2023 CLINICAL HISTORY: 58 years old Female. ICD-10 CODE: Z78.0 ASYMPTOMATIC MENOPAUSAL STATE Height: 64.75" Weight: 202lbs FRAX RISK QUESTIONS: Alcohol (3 or more units per day): No Family History (Parent hip fracture): No Glucocorticoids (More than 3mos): No (Ex: prednisone, prednisolone, methylprednisolone, dexamethasone, and hydrocortisone). History of Fracture in Adulthood: No Secondary Osteoporosis: 1. Type 1 Diabetes: No 2. Hyperthyroidism: No 3. Menopause before 45: No 4. Malnutrition: No 5. Chronic liver disease: No Rheumatoid Arthritis: No Current Tobacco Use: No RISK FACTORS HISTORY OF: Hip Fracture (Right/Left): No Spine Fracture: No History of Wrist Fracture: No Surgery to Spine/Hip(right/left)/Wrist (right/left): No Family History of Osteoporosis: No Active: Moderate Diet low in dairy products/other sources of calcium: No Postmenopausal woman: Yes Lost more than 2 inches in height since high school: No Frequent falls: No Poor Health: No Hyperparathyroidism: No Adrenal Insufficiency: Levels of kidney blood flow is low, per patient MEDICATIONS: Prednisone or other steroids: No Thyroid Medications: No Osteoporosis Medications: No Additional Medications: Blood pressure meds, cholesterol meds, metformin, other diabetic medication ( Trulicity), Monjaro, reflux meds Additional History: None EXAM MEASUREMENTS: Bone mineral densitometry was performed using the Wave[employer] System. Bone mineral density as measured about the Lumbar spine is: ----- L1-L4(G/cm2): 1.280 T Score Values are as follows: ----- L1: 0.3 ----- L2: 0.9 ----- L3: 0.9 ----- L4: 1.1 ----- L1-L4: 0.8 Z Score Values are as follows: ----- L1: 0.6 ----- L2: 1.2 ----- L3: 1.2 ----- L4: 1.4 ----- L1-L4: 1.2 Bone mineral density has: increased 1.3% since study of: 09/23/2019 Bone mineral density about the R hip (g/cm2): 0.890 Bone mineral density about the L hip (g/cm2): 0.942 T Score values are as follows: -----R Neck: -1.7 -----L Neck: -1.4 -----R Total: -0.9 -----L Total: -0.5 Z Score values are as follows: -----R Neck: -1.0 -----L Neck: -0.7 -----R Total: -0.6 -----L Total: -0.2 Bone mineral density has: decreased -1.7% since study of: 09/23/2019 FRAX%s: The graph provided illustrates a 8.1% chance for a major osteoporotic fx and a 0.8% chance fo r the hips probability for fx in 10 years time. IMPRESSION: Osteopenia (T Score between -2.5 and -1). There is slightly increased risk of fracture and the patient may be considered for treatment. Re-Screen 2-5 years. NOTE: T-SCORE=SD OF THE YOUNG ADULT MEAN.
== END | disposition home or self-care (01) ==
LOC: RADBDWWP 15:30
PROVIDERS: ATTEND Family Medicine
DX: Z13.820 Encounter for screening for osteoporosis (principal); M85.89 Other specified disorders of bone density and structure, multiple sites; Z78.0 Asymptomatic menopausal state
CPT/HCPCS: 77080

== ENCOUNTER → 2023-09-26 | Day surgery (SDC) | payer MEDICARE, OTHER ==
[2023-09-24 16:23] VITALS: BMI 34.0
[~2023-09-26] MED LIST changes: -HEPARIN SODIUM,PORCINE 5,000 UNIT/ML 1 ML VIAL SQ ONE; -HYDROmorphone 0.5 MG/0.5 ML SYRINGE IVP PRN; -LIDOCAINE 1% 20 ML VIAL (10MG/ML) FOR IV START INTRADERMA PRN; +ONDANSETRON 4 MG/2 ML VIAL ONE; +PROPOFOL 10 MG/ML 20 ML VIAL IV ONE; -Pre Op ABX Message 1 EACH MISC MISCELLANE ONE
[2023-09-26 07:54] LABS: Glucose,Whole Blood 100 mg/dL (70-110)
[2023-09-26 07:57] VITALS: TEMP 96.5
--- NOTE | 2023-09-26 08:13 | P.GSHP ---
History of Present Illness H&P Date: 09/26/23 Chief Complaint: GERD, screening colonoscopy This a 4-year-old female presents today for EGD and screening colonoscopy. Patient has mild GERD. Past Medical History Past Medical History: Asthma, Diabetes Mellitus, GERD/Reflux, Hyperlipidemia, Hypertension, Musculoskeletal Disorder, Osteoarthritis (OA), Pneumonia, Renal Disease Additional Past Medical History / Comment(s): anemia,iron infusions, DDD, vertigo,wears a continual blood glucose monitor History of Any Multi-Drug Resistant Organisms: None Reported Past Surgical History: Cholecystectomy, Orthopedic Surgery, Tubal Ligation, Uterine Ablation Additional Past Surgical History / Comment(s): COLONOSCOPY, EGD, REMOVAL LLE LIGAMENT, Paolo fundoplication Past Anesthesia/Blood Transfusion Reactions: Motion Sickness, Postoperative Nausea & Vomiting (PONV) Additional Past Anesthesia/Blood Transfusion Reaction / Comment(s): vertigo Smoking Status: Never smoker - Past Family History Sister(s) Family Medical History: Cancer, Deep Vein Thrombosis (DVT) Additional Family Medical History / Comment(s): SISTER W/ BLOOD CLOTS, SISTERS WITH BREAST CANCER, sister with stomach cancer, sister with lupus. Patient has a total of 11 siblings. She has 3 daughters and 1 son that are healthy. Mother Family Medical History: Myocardial Infarction ([place]), Renal Disease Father Family Medical History: Myocardial Infarction ([place]) Medications and Allergies Home Medications Medication Instructions Recorded Confirmed Type Simvastatin [Zocor] 40 mg PO HS 01/18/15 09/24/23 History HYDROcodone/APAP 10-325MG [[place] 1 each PO TID PRN 02/03/15 09/24/23 History 10] lisinopriL [Prinivil] 20 mg PO QAM 02/03/15 09/24/23 History Furosemide [Lasix] 20 mg PO BID 07/06/15 09/24/23 History Ranitidine HCl [Zantac] 150 mg PO HS 06/04/16 09/24/23 History Dapagliflozin Propanediol [Farxiga] 5 mg PO DAILY 09/24/23 09/24/23 History Famotidine [Pepcid] 20 mg PO BID 09/24/23 09/24/23 History Ferrous Sulfate [Feosol] 325 mg PO DAILY 09/24/23 09/24/23 History Gabapentin 300 mg PO BID 09/24/23 09/24/23 History Insulin Aspart [NovoLOG Flexpen] 1 dose SQ DIRECTED 09/24/23 09/24/23 History Insulin Glargine,Hum.rec.anlog 24 units SQ QAM 09/24/23 09/24/23 History [Touroberto Arellano] Tirzepatide [Mounjaro] 5 mg SQ WE 09/24/23 09/24/23 History Allergies Allergy/AdvReac Type Severity Reaction Status Date / Time shellfish derived [Shrimp] Allergy Rash/Hives Verified 09/26/23 07:58 sulfamethoxazole Allergy Rash/Hives Verified 09/26/23 07:58 [From Bactrim] trimethoprim [From Bactrim] Allergy Rash/Hives Verified 09/26/23 07:58 Surgical - Exam Vital Signs Temp Pulse Resp BP Pulse Ox 96.5 F L 81 16 118/63 96 09/26/23 07:45 09/26/23 07:45 09/26/23 07:45 09/26/23 07:45 09/26/23 07:45 - General well developed, well nourished, no distress - Eyes PERRL - ENT normal pinna - Neck no masses - Respiratory normal expansion - Cardiovascular Rhythm: regular - Abdomen Abdomen: soft, non tender Assessment and Plan Assessment: GERD. We'll perform EGD. We'll also perform screening colonoscopy
--- NOTE | 2023-09-26 08:28 | P.OP ---
Date of Procedure: 09/26/23 Preoperative Diagnosis: GERD Screening colonoscopy Postoperative Diagnosis: Antral gastritis Mild diverticulosis Right colon polyp Procedure(s) Performed: EGD Colonoscopy Anesthesia: MAC Surgeon: Gera Araujo Pathology: other (Antrum, right colon) Condition: stable Disposition: PACU Description of Procedure: The patient's placed on the endoscopy table in the lateral position. Received IV sedation. The gastroscope placed oropharynx passed in the esophagus and stomach. Scope was then placed through the pylorus. The first and second portion duodenum appeared normal. Scope summer back the antrum and this appeared mildly inflamed. A biopsies performed. The scope was unretroflexed and remainder the stomach appeared normal. The patient had a previous fundal plication. The wrap appeared to be in appropriate position. The GE junction was at 40 cm. There is no evidence of recurrent hiatal hernia. The distal esophagus appeared normal. The proximal esophagus appeared all. Scope withdrawn for patient. Next digital rectal exam was performed. This revealed no ebonized. Flexible co lonoscope was then placed patient anus and passed throughout the entire colon. The ileocecal valve was visualized. The cecum appeared normal. In the right colon there is a small sessile polyp. Through a cold forcep. The remainder the right colon appeared normal. The transverse colon appeared normal. In the descending and; was mild diverticular changes. Scope summer back the rectum this appeared normal. Scope withdrawn for patient.
[2023-09-26 08:54] VITALS: BP 105/68; PULSE 66
[2023-09-26 08:55] VITALS: RESP 18
== END ==
LOC: ORWHC2ENDO 07:17
PROVIDERS: ATTEND Surgery
DX: Z12.11 Encounter for screening for malignant neoplasm of colon (principal); K29.50 Unspecified chronic gastritis without bleeding; K63.5 Polyp of colon; K21.00 Gastro-esophageal reflux disease with esophagitis, without bleeding; J45.909 Unspecified asthma, uncomplicated; E11.9 Type 2 diabetes mellitus without complications; E78.5 Hyperlipidemia, unspecified; I10 Essential (primary) hypertension; M19.90 Unspecified osteoarthritis, unspecified site; J18.9 Pneumonia, unspecified organism; N28.9 Disorder of kidney and ureter, unspecified; Z90.49 Acquired absence of other specified parts of digestive tract; Z98.890 Other specified postprocedural states; Z79.84 Long term (current) use of oral hypoglycemic drugs; Z79.4 Long term (current) use of insulin; Z79.85 Long-term (current) use of injectable non-insulin antidiabetic drugs; Z88.2 Allergy status to sulfonamides; Z88.1 Allergy status to other antibiotic agents; Z79.899 Other long term (current) drug therapy
CPT/HCPCS: 88305; 45380; 43239; J2405; J2704

== ENCOUNTER → 2024-10-22 | Outpatient (CLI) | payer MEDICARE, OTHER ==
--- NOTE | 2024-10-23 18:12 | MM ---
Reason for Exam: Screening (asymptomatic). Last mammogram was performed 1 year(s) and 8 month(s) ago. Patient History: Menarche at age 10. First Full-Term at age 17. Sister had breast cancer, age 40. Risk Values: Maryam 5 year model risk: 2.8%. NCI Lifetime model risk: 12.9%. Prior Study Comparison: 09/23/2019 Bilateral Diagnostic Mammogram, [facility]. 12/18/2021 Bilateral Screening Mammogram, [facility]. 03/07/2023 Bilateral MG 3D screening mammo w/cad, [facility]. Tissue Density: The breasts are heterogeneously dense, which may obscure small masses. Findings: Analyzed By CAD. Increasing pleural calcifications posterior quadrant left breast adjacent to some benign calcifications. Further magnification views are recommended to evaluate. Otherwise, no significant change. Overall Assessment: Incomplete: need additional imaging evaluation, BI-RAD 0 Management: Special View Mammogram of the left breast. [facility] will attempt to contact patient to return for supplemental views . [facility], , 10/23/2024 6:09 PM. Electronically signed and approved by: Inocencio Byers M.D. Radiologist
== END | disposition home or self-care (01) ==
LOC: RADMAMWWP 09:53
PROVIDERS: ATTEND Family Medicine
DX: Z12.31 Encounter for screening mammogram for malignant neoplasm of breast (principal); Z80.3 Family history of malignant neoplasm of breast; R92.333 Mammographic heterogeneous density, bilateral breasts
CPT/HCPCS: 77063; 77067

== ENCOUNTER → 2024-11-13 | Outpatient (CLI) | payer OTHER ==
--- NOTE | 2024-11-13 10:45 | MM ---
Reason for Exam: Additional evaluation requested from abnormal screening. Last screening mammogram was performed less than 1 month ago. Patient History: Menarche at age 10. First Full-Term at age 17. Sister had breast cancer, age 40. Risk Values: Maryam 5 year model risk: 2.8%. NCI Lifetime model risk: 12.9%. Prior Study Comparison: 12/18/2021 Bilateral Screening Mammogram, [facility]. 03/07/2023 Bilateral MG 3D screening mammo w/cad, [facility]. 10/22/2024 Bilateral MG 3D screening mammo w/cad, [facility]. Tissue Density: Left: The breasts are heterogeneously dense, which may obscure small masses. Findings: Analyzed By CAD. Grouped calcifications posterior 2 o'clock left breast have a heterogeneous appearance and scan 1.5 cm. Tissue sampling recommended. Overall Assessment: Suspicious, BI-RAD 4 Management: Stereotactic Core Biopsy of the left breast. [facility], , 11/13/2024 10:42 AM. Electronically signed and approved by: Inocencio Byers M.D. Radiologist
== END | disposition home or self-care (01) ==
LOC: RADMAMWWP 10:13
PROVIDERS: ATTEND Family Medicine
DX: R92.8 Other abnormal and inconclusive findings on diagnostic imaging of breast (principal); R92.333 Mammographic heterogeneous density, bilateral breasts; Z80.3 Family history of malignant neoplasm of breast
CPT/HCPCS: 77065; G0279; 77061

== ENCOUNTER → 2024-12-17 | Day surgery (SDC) | payer MEDICARE, OTHER ==
[~2024-12-17] MED LIST changes: +ALPRAZolam 0.25 MG TAB PO PRN; +ALPRAZolam 0.5 MG TAB PO PRN; -LACTATED RINGERS 1,000 ML IV SCH; -ONDANSETRON 4 MG/2 ML VIAL IVP ONE; -ONDANSETRON 4 MG/2 ML VIAL ONE; -PROPOFOL 10 MG/ML 20 ML VIAL IV ONE
[2024-12-17 10:11] VITALS: RESP 16
[2024-12-17 11:49] VITALS: BP 136/80; PULSE 65; TEMP 98.3
--- NOTE | 2024-12-21 12:04 | MM ---
Risk Values: Maryam 5 year model risk: 2.8%. NCI Lifetime model risk: 12.9%. Prior Study Comparison: 03/07/2023 Bilateral MG 3D screening mammo w/cad, [facility]. 10/22/2024 Bilateral MG 3D screening mammo w/cad, [facility]. 11/13/2024 Left MG 3D work up w/cad , [facility]. Pathology Description: Location: upper outer quadrant. Marker Left Behind. Approach: Lateral to Medial Needle Type: Eviva Cores: 7 Skin Nicks: 1 Gauge: 9 The procedure of stereotactic guided core biopsy was explained to the patient. Benefits, alternatives, and risks were discussed. An informed consent was then obtained. The shortness pathway for biopsy was chosen. Shortness pathway was lateral approach. A vacuum assisted biopsy gun was used to obtain multiple core samples. The patient tolerated the procedure well without any immediate complication. The patient was kept in the radiology department for short stay after the procedure and then discharged home in stable condition. Targeted calcifications are identified in specimen mammogram. Post biopsy mammogram performed on a separate work station shows the clip to appear in satisfactory position relative to the targeted area of concern on the preprocedure images. Impression: SUCCESSFUL, UNCOMPLICATED STEREOTACTIC GUIDED CORE BIOPSY OF AREA OF CONCERN IN THE left BREAST. The procedure of stereotactic guided core biopsy was explained to the patient. Benefits, alternatives, and risks were discussed. An informed consent was then obtained. The shortness pathway for biopsy was chosen. Shortness pathway was lateral approach. A vacuum assisted biopsy gun was used to obtain multiple core samples. The patient tolerated the procedure well without any immediate complication. The patient was kept in the radiology department for short stay after the procedure and then discharged home in stable condition. Targeted calcifications are identified in specimen mammogram. Post biopsy mammogram performed on a separate work station shows the clip to appear in satisfactory position relative to the targeted area of concern on the preprocedure images. Impression: SUCCESSFUL, UNCOMPLICATED STEREOTACTIC GUIDED CORE BIOPSY OF AREA OF CONCERN IN THE left BREAST. [facility], , 12/17/2024 12:29 PM. Pathology Results: Result: Benign, Fibroadenoma. Pathology and radiology were reviewed. Findings are concordant. 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 Overall Assessment: Benign Management: Diagnostic Mammogram of the left breast in 6 months. Electronically signed and approved by: West Bustos DO
== END ==
LOC: RADMAMWWP 09:57
PROVIDERS: ATTEND Family Medicine
DX: D24.2 Benign neoplasm of left breast (principal); N60.12 Diffuse cystic mastopathy of left breast
CPT/HCPCS: 88305; 19081; A4648; J2003